=== PATIENT | female | born 1965 | race Caucasian/White ===

== ENCOUNTER → 2020-11-20 | Day surgery (SDC) | payer BC, OTHER ==
[~2020-11-20] MED LIST: ASPIRIN81 MG PO; CITALOPRAM HBR40 MG PO; CRESTOR 10 MG T10 MG PO; DAILY VALUE1 EACH PO; FISH OIL 1,0001 EAC1 PO; FUROSEMIDE20 MG PO; IBU800 MG PO; MYSOLINE50 MG PO; NORCO 5-325 TA1 EACH PO; PLAVIX75 MG PO; PROGESTERONE100 MG PO; VITAMIN D325 MC6 PO
== END | disposition home or self-care (01) ==
LOC: OR 06:09
PROVIDERS: Surgery
PROC: 047M3Z1 Dilation of Right Popliteal Artery using Drug-Coated Balloon, Percutaneous Approach (ICD-10-PCS; 2020-11-20)
PROC: B41DZZZ Fluoroscopy of Aorta and Bilateral Lower Extremity Arteries (ICD-10-PCS; 2020-11-20)
PROC: 047K3Z1 Dilation of Right Femoral Artery using Drug-Coated Balloon, Percutaneous Approach (ICD-10-PCS; principal; 2020-11-20 09:30)
DX: I70.261 Atherosclerosis of native arteries of extremities with gangrene, right leg (principal); J44.9 Chronic obstructive pulmonary disease, unspecified; E78.5 Hyperlipidemia, unspecified; I10 Essential (primary) hypertension; F41.9 Anxiety disorder, unspecified; F17.210 Nicotine dependence, cigarettes, uncomplicated; Z79.02 Long term (current) use of antithrombotics/antiplatelets; Z79.899 Other long term (current) drug therapy
CPT/HCPCS: 76000; C1725; C1769; C2623; J0690; J1644; J2001; J2250; J2704; J2710; J2720; J3010; J7030; J7040; J7050; J7120; Q9962

== ENCOUNTER 2020-11-29 11:38 | Emergency (ER) | payer BC, OTHER ==
[2020-11-29 13:23] LABS: HEMOGLOBIN 14.5 gm/dl (12.3-15.3); RED BLOOD COUNT 4.42 M/UL (4.00-5.10); WHITE BLOOD COUNT 9.5 K/UL (4.5-11.0)
[2020-11-29 13:45] LABS: BUN/CREATININE RATIO 22 (0-10)
== END 2020-11-29 17:05 | disposition home or self-care (01) ==
LOC: ER1 11:38
PROVIDERS: Physician Assistant Medical
DX: I96 Gangrene, not elsewhere classified (principal); L03.115 Cellulitis of right lower limb; I10 Essential (primary) hypertension
CPT/HCPCS: 73630; 80053; 83605; 85025; 96365; 96366; 99283

== ENCOUNTER → 2020-12-05 | Day surgery (SDC) | payer BC, OTHER | END | disposition home or self-care (01) | LOC: OR 11:27 | DX: I70.261 Atherosclerosis of native arteries of extremities with gangrene, right leg (principal); L97.519 Non-pressure chronic ulcer of other part of right foot with unspecified severity; M86.171 Other acute osteomyelitis, right ankle and foot; I70.202 Unspecified atherosclerosis of native arteries of extremities, left leg; L08.89 Other specified local infections of the skin and subcutaneous tissue; F17.210 Nicotine dependence, cigarettes, uncomplicated; I10 Essential (primary) hypertension; J44.9 Chronic obstructive pulmonary disease, unspecified; F41.9 Anxiety disorder, unspecified; Z79.02 Long term (current) use of antithrombotics/antiplatelets; Z98.890 Other specified postprocedural states; Z79.82 Long term (current) use of aspirin; Z79.890 Hormone replacement therapy | CPT/HCPCS: 73630; 87070; 87077; 87186; 87205; J0690; J1100; J2001; J2250; J2405; J2704; J3010; J3370; J7030; J7120 ==

== ENCOUNTER → 2021-02-27 | Outpatient (CLI) | payer BC, OTHER | LOC: HEART 5 02-20 13:30 | DX: I83.93 Asymptomatic varicose veins of bilateral lower extremities (principal); Z95.1 Presence of aortocoronary bypass graft | CPT/HCPCS: 93306; 93970 ==

== ENCOUNTER → 2021-05-02 | Outpatient (CLI) | payer BC, OTHER | LOC: KOH-I 13:30 → US 13:30 → KOH-I 14:00 → US 15:00 | DX: I73.9 Peripheral vascular disease, unspecified (principal); I65.23 Occlusion and stenosis of bilateral carotid arteries | CPT/HCPCS: 93880; 93925 ==

== ENCOUNTER → 2021-11-15 | Outpatient (CLI) | payer BC | LOC: MAMO 10-28 09:30 | DX: Z12.31 Encounter for screening mammogram for malignant neoplasm of breast (principal) | CPT/HCPCS: 77063; 77067 ==

== ENCOUNTER → 2022-04-25 | Outpatient (CLI) | payer BC | LOC: EXRD 15:10 | DX: I73.89 Other specified peripheral vascular diseases (principal) | CPT/HCPCS: 93926 ==